=== PATIENT | male | born 1970 | race African-American/Black ===

== ENCOUNTER 2016-10-29 22:10 | Emergency (ER) | payer SELFPAY ==
[~2016-10-29] VITALS: Ht 182.9 cm; Wt 85.0 kg
[2016-10-29 22:22] VITALS: BP 117/74; PULSE 59; RESP 16; TEMP 98.8; O2SAT 97
[2016-10-29] MEDS ORDERED: traMADol HCL 50 MG TAB PO ONE (22:30)
[2016-10-29] MEDS ORDERED: CLINDAMYCIN 150 MG CAP PO ONE (22:30)
[2016-10-29] MEDS ORDERED: LIDOCAINE HCL 1% 50 ML VIAL INFIL ONE (22:30)
--- NOTE | 2016-10-29 22:49 | RADRPT ---
EXAM DATE/TIME: 10/29/2016 22:44 [facility] COMPARISON: No previous studies available for comparison. INDICATIONS : Dog bite, soft tissue injury right mid calf MEDICAL HISTORY : None. SURGICAL HISTORY : None. ENCOUNTER: Initial ACUITY: 1 day PAIN SCORE: 6/10 LOCATION: Right mid calf FINDINGS: Two view examination of the right tibia demonstrates no evidence of fracture or dislocation. Bony mi neralization is normal. Soft tissue injury/ laceration midcalf with subcutaneous emphysema. CONCLUSION: Soft tissue injury/laceration without fracture. Esvin Man MD on October 29, 2016 at 22:47 Board Certified Radiologist. This report was verified electronically.
[2016-10-29] MEDS ORDERED: CLIN1CAP6 PO (23:19)
--- NOTE | 2016-10-29 23:20 | PD ---
HPI Chief Complaint: Medical Clearance Time Seen by Provider: 22:30 Travel History International Travel<30 days: No Contact w/Intl Traveler<30days: No Traveled to known affect area: No History of Present Illness HPI So 45-year-old man who presents to the emergency department complaining of right leg pain and left hand pain after he was bitten by a police canine. He has a bite wound on the right calf, as well as a bite wound on the fourth finger of the left hand. States he is up-to-date on his tetanus. History Past Medical History Medical History: Denies Significant Hx Past Surgical History Surgical History: No Previous Surgery Social History Alcohol Use: No Tobacco Use: No Allergies-Medications (Allergen,Severity, Reaction): Coded Allergies: Aspirin (Verified Allergy, Unknown, 10/29/16) Nonsteroidal Anti-Inflammatory Agts (Verified Allergy, Unknown, 10/29/16) Penicillin (Verified Allergy, Unknown, 10/29/16) Tylenol (Verified Allergy, Unknown, 10/29/16) Reported Meds & Prescriptions Reported Meds & Active Scripts Active No Active Prescriptions or Reported Medications Review of Systems Except as stated in HPI: all other systems reviewed are Neg Physical Exam Narrative GENERAL: Well-appearing 45 old man, appears uncomfortable and nontoxic. SKIN: Warm and dry. CARDIOVASCULAR: Warm and well perfused. RESPIRATORY: Normal rate and effort. MUSCULOSKELETAL: Focused examination left hand reveals a curvilinear laceration on the volar side of the fourth digit on the middle phalanx extending about a third of the circumference of the finger. Flexion and extension of the finger. Tach. There is pain but no evidence of bony injury. He also has a wound to the right With several puncture wounds. NEUROLOGICAL: Awake and alert. No gross deficits. Data Data Last Documented VS Vital Signs Date Time Temp Pulse Resp B/P Pulse Ox O2 Delivery O2 Flow Rate FiO2 10/29/16 22:22 98.8 59 16 117/74 97 Orders Tibia/Fibula (Ap/Lat) (10/29/16 ) Tramadol (Ultram) (10/29/16 22:30) Clindamycin (Cleocin) (10/29/16 22:30) Lidocaine 1% Inj (50 Ml) (Xylocaine 1% I (10/29/16 22:30) MDM Medical Decision Making Medical Screen Exam Complete: Yes Emergency Medical Condition: Yes Differential Diagnosis Hand laceration, hand fracture, retained foreign body, leg fracture Narrative Course Medical decision making 45 old man with soft tissue wounds from police canine. We'll check an x-ray of the calf measures no retained teeth or foreign bodies or fracture. The wound on the fingers fairly small. I don't think he has any bony injury. Strength is intact distally. Given the length of the soft tissue wound we'll place a couple sutures us to pull together some was still believe loose stool while drainage. Local wound care only to the leg. Diagnosis Primary Impression: Dog bite Additional Instructions: Take antibiotics as prescribed. Sutures need to come out in 7 days. Follow-up with the regular doctor or return to the emergency department. Med/Other Pt SpecificInfo: Prescription(s) given Scripts Clindamycin 300 Mg [id number] Mg PO Q6H 10 Days Prov:Chandrakant Adam MD 10/29/16 Disposition: 01 DISCHARGE HOME Condition: Stable Chandrakant Adam MD Oct 29, 2016 23:20
--- NOTE | 2016-10-29 23:28 | PD ---
Physical Exam Narrative I was asked by Dr. Adam to repair patient's finger laceration. Please see his documentation for full H&P. Data Data Last Documented VS Vital Signs Date Time Temp Pulse Resp B/P Pulse Ox O2 Delivery O2 Flow Rate FiO2 10/29/16 22:22 98.8 59 16 117/74 97 Orders Tibia/Fibula (Ap/Lat) (10/29/16 ) Tramadol (Ultram) (10/29/16 22:30) Clindamycin (Cleocin) (10/29/16 22:30) Lidocaine 1% Inj (50 Ml) (Xylocaine 1% I (10/29/16 22:30) Finger ([id number]) (10/29/16 ) MDM Supervised Visit with WILLIAM: No Narrative Course The patient suffered laceration to the finger. There was no evidence to suggest foreign bodies. Visual, tactile and radiographic exams were unremarkable without evidence of foreign body at this time. There was no evidence of neurovascular injury. The patient had a normal distal vascular exam, and had full normal motor and sensory exams. There was also no evidence or tendon injury , with normal distal full range of motions, flexion, extension, abduction, adduction and opponens. There was no evidence of local joint space involvement at this time. The patient was irrigated with copious sterile normal saline and primary repair was performed. Please see procedure note. The patient was given signs and symptom warnings for infection, such as increasing pain, redness, swelling, associated heat, pus or fever. The patient was warned of possible unseen foreign body and instructed to return immediately if signs or symptoms develop. The patient was given instructions for timely follow up. The patient agreed with plan of care. Procedures Procedure Narrative LACERATION REPAIR LOCATION: Left index finger LENGTH: Approximately 2.5 cm length NUMBER OF STITCHES/HOMAR: 2 simple interrupted REPAIR: Verbal consent was obtained. The area of the laceration was cleaned and prepped. Visual block was performed using lidocaine without epi.. The wound was copiously irrigated and explored without evidence of foreign body, bony involvement, ligament injury, tendon injury, or neurovascular injury. The wound was closely reapproximated using 5-0 Vicryl. This was a single layer repair. A sterile dressing was applied by nurse. The patient was advised to keep the affected area as clean and dry as possible using soap and water. There were no complications. Patient tolerated the procedure well. Diagnosis Primary Impression: Dog bite Additional Instruction: Take antibiotics as prescribed. Sutures need to come out in 7 days. Follow-up with the regular doctor or return to the emergency department. Scripts Clindamycin 300 Mg [id number] Mg PO Q6H 10 Days Prov:Chandrakant Adam MD 10/29/16 Disposition: 01 DISCHARGE HOME Condition: Stable Zion Silva Oct 29, 2016 23:27
[2016-10-30] MEDS ORDERED: TRAM50TA PO (00:08)
--- NOTE | 2016-10-30 01:06 | RADRPT ---
EXAM DATE/TIME: 10/29/2016 23:34 [facility] COMPARISON: No previous studies available for comparison. INDICATIONS : Dog bite left 4th finger. Laceration. MEDICAL HISTORY : None. SURGICAL HISTORY : None. ENCOUNTER: Initial ACUITY: 1 day PAIN SCORE: 6/10 LOCATION: Left upper extremity FINDINGS: Examination of the fourth digit of the left hand demonstrates no evidence of fracture or dislocation. No radiopaque foreign bodies are seen. The soft tissues are intact. CONCLUSION: No acute bony injury Maximus Kevin MD on October 30, 2016 at 1:04 Board Certified Radiologist. This report was verified electronically.
== END 2016-10-30 00:49 | disposition home or self-care (01) ==
LOC: NEPD 22:10
DX: S61.211A Laceration without foreign body of left index finger without damage to nail, initial encounter (principal); M79.604 Pain in right leg; W54.0XXA Bitten by dog, initial encounter
CPT/HCPCS: 12001; 73140; 73590